=== PATIENT | male | born 1975 | race Two or more races ===

== ENCOUNTER 2024-09-21 10:44 | Outpatient (REF) | payer SELFPAY ==
--- OUTSIDE RECORDS SUMMARY | 2024-09-21 10:50 | XMS_ITS | Clinical Summary ---
Author Organization [facility] ity Address [address] [place] [address] Care Team Providers Care Student Ministry Pastor Name Role Phone Unavailable Primary Care Provider Unavailabl e Social History Tobacco Use Types Packs/Day Years Used Date Smoking Tobacco: Never Assessed Sex and Gender Information Value Date Recorded Sex Assigned at Not on file Legal Sex Male 12:49 AM EST Gender Identity Not on file Sexual Orientation Not on file Plan of Treatment Health Maintenance Due Date Last Done Comments DTaP,Tdap,and Td Vaccines (1 - Tdap) 1996 Hepatitis B Vaccines (1 of 3 - 19+ 3-dose series) 1996 COVID-19 Vaccine (2023-2 5 season) 2024 Influenza Vaccine (#1) 2024 HIB Vaccines Aged Out No longer eligi ble based on patient's age to complete this topic HPV Vaccines Aged Out No longer eligi ble based on patient's age to complete this topic Hepatitis A Vaccines Aged Out No long er eligible based on patient's age to complete this topic IPV Vaccines Aged Out No longer eligi ble based on patient's age to complete this topic MMR Vaccines Aged Out No longer eligi ble based on patient's age to complete this topic Meningococcal ACWY Vaccine Aged Out N o longer eligible based on patient's age to complete this topic Meningococcal B Vacine Aged Out No lo nger eligible based on patient's age to complete this topic Pneumococcal Vaccine: Pediat rics (0 to 5 Years) and At-Risk Patients (6 to 64 Years) Aged Out No longer eligible b ased on patient's age to complete this topic RSV Immunization Patients Un michelle 20 months Aged Out No longer eligible b ased on patient's age to complete this topic Varicella Vaccines Aged Out No longer eligible based on patient's age to complete this topic
--- OUTSIDE RECORDS SUMMARY | 2024-09-21 10:50 | XMS_ITS | Encounter Summary ---
Author Organization [email or web address] Address [address] [place] [address] 7 [place] [address] Care Team Providers Care Installment Dealer Name Role Phone Jairo Contreras MD Primary Care Prov ider Reason for Visit * Reason Comments Med Refill Encounter Details Date Type Department Care Team (Late st Contact Info) Description 09/30/2022 Refill [facility] [address] [place] [address] Jairo Contreras MD [address] [place] [address] Mild intermittent asthma without complication Social History Tobacco Use Types Packs/Day Years Used Date Smoking Tobacco: Never Assessed Sex and Gender Information Value Date Recorded Sex Assigned at Male 05/30/2022 10:37 AM EDT Legal Sex Male 10:37 AM EDT Gender Identity Male 05/30/2022 10:37 AM EDT Sexual Orientation Straight 05/30/2022 10 :37 AM EDT documented as of this encounter Plan of Treatment Not on file documented as of this encounter Visit Diagnoses Diagnosis Mild intermittent asthma without complication documented in this encounter Care Teams Installment Dealer Relationship Specialty Start Date End Date Jairo Contreras MD [address] [place] [address] PCP - General Internal Medicine 06/05/20 documented as of this encounter
--- OUTSIDE RECORDS SUMMARY | 2024-09-21 10:50 | XMS_ITS | Clinical Summary ---
Author Organization [employer] Address [address] [facility] 7t [place] [address] Care Team Providers Care Ocean Transportation Intermediary Name Role Phone Jairo Contreras MD Primary Care Prov ider Allergies No known active allergies Medications nicotine (Nicoderm CQ) 21 MG/24HR patchIndications:Brody schaffer Place 1 patch on the skin 1 (one) time each day at the same time. 42 patch 08/29/19 23 Active metFORMIN (Glucophage) 500 MG tablet TAKE 1 TABLET(500 MG) BY MOUTH TWICE DAILY 180 tablet 1 07/11/20 24 Active rosuvastatin (Crestor) 10 MG tabletIndications: Mixed hyperlipidemia TAKE 1 TABLET(10 MG) BY MOUTH IN THE MORNING 90 tablet 1 07/15/20 24 Active empagliflozin (Jardiance) 25 MG Take 1 tablet (25 mg) by mouth Once per day. 30 tablet 11 08/12/19 25 026 Active albuterol 108 (90 Base) MCG/ACT inhalerIndications :Mild intermittent asthma without complication INHALE 1 PUFF BY MOUTH EVERY 6 HOURS NEEDED FOR WHEEZING 8.5 g 1 08/30/19 25 Active albuterol 108 (90 Base) MCG/ACT inhalerIndications :Mild intermittent asthma without complication Inhale 1 puff every 6 (six) hours if needed for wheezing. 8.5 g 1 07/16/20 24 025 Discontinued Active Problems Problem Noted Date Diagnosed Date Type 2 diabetes mellitus wit h hyperglycemia, without long-term current use of insulin 08/29/2022 Assessment & Plan (08/12/2024 7:57 PM EST): Not at target, will add jardiance, continue metformin, follow up in 1 month Assessment & Plan (10/12/2023 12:43 PM EDT): Patient not adhering to diet, he is on metformin 500mg bid, does not want to get dose increased, will follow up in 3 months Will refer for eye exam Assessment & Plan (04/26/2023 1:23 PM EDT): Refers average from 120's to 150's, not interested in increasing his metformin dose, will place blood work for guidance of therapy Eye exam done on target december as per patient Assessment & Plan (08/29/2022 9:51 AM EST): [place] in the 100's highest 160's, last a1c from 04/2022 was 6.9%, reinforced importance of weight loss, exercise and low carbohydrate diet. Follow up in 3 month in office Will refer for eye exam Mixed hyperlipidemia 08/29/2022 Assessment & Plan (08/12/2024 7:58 PM EST): Continue rosuvastatin, labs ordered not performed Assessment & Plan (10/12/2023 12:44 PM EDT): On rosuvastatin 10mg, not adhering to diet, does not want to get dose increased, wants to follow up in 3 months Assessment & Plan (04/26/2023 1:24 PM EDT): On rosuvastatin, will order new labs for guidance of therapy Assessment & Plan (08/29/2022 9:49 AM EST): On rosuvastatin, will order new labs for guidance of therapy Screening for colon cancer 08/29/2022 Assessment & Plan (08/29/2022 9:50 AM EST): Will refer for a screening colonoscopy Smoker 08/29/2022 Assessment & Plan (08/29/2022 9:51 AM EST): Patient is interested in quitting smoking ciggarrettes, will prescribe nicotine patches. Encounters Date Type Department Care Team Description 08/27/2024 Refill [facility] [address] [place] [address] Jairo Contreras MD Mild intermittent asthma without complication 08/12/2024 10:15 AM EST Office Visit [facility] [address] [place] [address] Jairo Contreras MD Mixed hyperlipidemia (Primary Dx); Type 2 diabetes mellitus with hyperglycemia, without long-term current use of insulin ([facility]) 08/12/2024 Travel 08/08/2024 Travel 07/15/2024 Refill [facility] [address] [place] [address] Jairo Contreras MD Mild intermittent asthma without complication 07/15/2024 Telephone [facility] [address] [place] [address] Jairo Contreras MD Med Refill 07/13/2024 Refill [facility] [address] [place] [address] Jairo Contreras MD Mixed hyperlipidemia 07/11/2024 Refill [facility] [address] [place] [address] Jairo Contreras MD 07/04/2024 Refill [facility] [address] [place] [address] Jairo Contreras MD Mild intermittent asthma without complication from Last 3 Months Social History Tobacco Use Types Packs/Day Years Used Date Smoking Tobacco: Every Day Cigarettes 1 20 Smokeless Tobacco: Never Alcohol Use Standard Drinks/Week Comments Yes 0 (1 standard drink = 0.6 oz pur e alcohol) Depression Answer Date Recorded Patient Health Questionnaire-9 Score 0 10/12/2023 Patient Health Questionnaire-9 Score 0 10/12/2023 Last PHQ-9: Questionnaire Data Not on file 0 10/12/2023 Housing Stability Answer Date Recorded What is your housing situation today? I have watson gee 10/12/[address] you li ve. Do you have problems with any of the following? None of the above 10/12/2023 Food Insecurity Answer Date Recorded Within the past 12 months, y ou worried that your food would run out before you got money to buy more: Never True 10/12/2023 Within the past 12 months,th e food you bought just didn't last and you didn't have enough money to get more: Never True Transportation Answer Date Recorded In the past 12 months, has l ack of transportation kept you from medical appts, meetings, work or from getting things needed for daily living? No 10/12/2023 Utilities Answer Date Recorded In the past 12 months, has t he electric, gas, oil or water company threatened to shut off services in your home? No 10/12/2023 Depression Answer Date Recorded Patient Health Questionnaire-2 Score 0 10/12/2023 Sex and Gender Information Value Date Recorded Sex Assigned at Male 05/30/2022 10:37 AM EDT Legal Sex Male 10:37 AM EDT Gender Identity Male 05/30/2022 10:37 AM EDT Sexual Orientation Straight 05/30/2022 10 :37 AM EDT Last Filed Vital Signs Vital Sign Reading Time Taken Comments Blood Pressure 136/84 08/12/2024 10:33 AM EST Pulse 100 08/12/2024 10:33 AM EST Temperature 36.3 ??C (97.3 ??F) 08/12/2024 10:[address] Respiratory Rate 20 08/12/2024 10:33 AM EST Oxygen Saturation 98% 08/12/2024 10:33 AM EST Inhaled Oxygen Concentration - - Weight 77.2 kg (170 lb 3.2 oz) 08/12/2024 10:33 AM EST Height 160 cm (5' 3 ) 08/12/2024 10:33 AM EST Body Mass Index 30.15 08/12/2024 10:33 AM EST Plan of Treatment Health Maintenance Due Date Last Done Comments CT Colonography 1977 Colonoscopy 1977 Colorectal Cancer Screening 1977 FIT DNA/Cologuard 1977 FIT 1977 FOBT 1977 Sigmoidoscopy 1977 Diabetes: Foot Exam 12/22/1987 Eye Exam 12/22/1987 Alcohol/Substance Use Screening 1989 Family Planning (PISQ) 1992 DTaP/Tdap/Td Vaccines (1 - Tdap) 1996 Hepatitis B Vaccines (1 of 3 - 19+ 3-dose series) 1996 Pneumococcal Vaccine: Pediatrics (0 to 5 Years) and At-Risk Patients (6 to 49) Years) (1 of 2 - PCV) 1996 COVID-19 Vaccine (3 - season) 2024 11/09/2020, 10/19/2020 Influenza Vaccine (#1) 2024 Tobacco Screening 04/26/2024 04/26/2023 Diabetes: Urine Protein Screening 10/02/2024 10/03/2023, 06/10/2021 Lipid Panel 10/02/2024 10/03/2023, 07/0 01/2023, 05/18/2022, Additional history exists Depression Screening 10/11/2024 10/12/2023, 10/12/19 SDOH Screening 10/11/2024 10/12/2023 Diabetes: Hemoglobin A1C 11/10/2024 025, 10/03/2023, 05/18/2022, Additional history exists Zoster Vaccines (1 of 2) 12/22/2027 RSV Patients and Patients Aged 60 years or older (1 - 1-dose 75+ series) 2052 HIV Screening Completed 02/03/2023, 06/09/2020 Hepatitis C Screening Completed 02/03/2023, 022 HIB Vaccines Aged Out No longer eligi [...] patient's age to complete this topic Meningococcal Vaccine Aged Out No sandra arabella eligible based on patient's age to complete this topic RSV under 20 months Aged Out No longe r eligible based on patient's age to complete this topic Rotavirus Vaccines Aged Out No longer eligible based on patient's age to complete this topic Procedures Procedure Name Priority Date/Time Associated Diagnosis Comments POCT GLYCATED HEMOGLOBIN, TOTAL Routine 08/12/2024 10:36 AM EST Type 2 diabetes mellitus with hyperglycemia, without long-term current use of insulin (CMS/HCC) POCT GLUCOSE Routine 08/12/2024 10:35 AM EST Type 2 diabetes mellitus with hyperglycemia, without long-term current use of insulin (CMS/HCC) ALBUMIN, RANDOM URINE W/CREATININE Routine 10/03/2023 9:03 AM EST LIPID PANEL, STANDARD Routine 10/03/2023 9:03 AM EST HEPATITIS C AB W/REFL TO HCV RNA, QN, PCR Routine 02/03/2023 9:23 AM EDT Type 2 diabetes mellitus without complication, without long-term current use of insulin ([facility]) Mixed hyperlipidemia HIV 1 RNA, QN PCR W/RFL ZACK (RTI,PI,INTEGRASE) Routine 02/03/2023 9:23 AM EDT Type 2 diabetes mellitus without complication, without long-term current use of insulin ([facility]) Mixed hyperlipidemia from Last 3 Months or Most Recently Relevant to Health Maintenance Results * (ABNORMAL) POCT HGB A1C (08/12/2024 10:36 AM EST) Pathologist [facility] Hemoglobin A1C 7.8(A) 4.0 - 6.0 % QC Media Lot # [id number] Lot# Expiration Date 8,026 Blood 08/12/2024 10:3 6 AM EST Jairo Richards MD POINT OF CARE TEST ENTER/EDIT ORDERABLES Final Result * (ABNORMAL) POCT Glucose (08/12/2024 10:35 AM EST) Pathologist [facility] Glucose Blood, POC 313(A) 60 - 200 mg/dL QC Media Lot # [id number] Lot# Expiration Date [id number] Blood Capillary blood specimen / Unknown 08/12/2024 10:35 AM EST Jairo Richards MD POINT OF CARE TEST ENTER/EDIT ORDERABLES Final Result * Albumin, Random Urine W/Creatinine (10/03/2023 9:03 AM EST) Creatinine, Random Urine 216 20 - 320 mg/dL [email or web address] Albumin, Urine 2.4 See Note: mg/dL [facility] [place] [email or web address] Comment: Reference Range: Reference Range Not established Albumin/Creatinin e Ratio, Random Urine 11 <30 mcg/mg creat [facility] [place] [email or web address] Comment: The ADA defines abnormalities in albumin excretion as follows: Albuminuria Category ?Result (mcg/mg creatinine) Normal to Mildly increased ?? <30 Moderately increased ? 30-299 Severely increased ? > OR = 300 The ADA recommends that at least two of three specimens collected within a 3-6 month period be abnormal before considering a patient to be within a diagnostic category. 10/03/2023 9:03 AM EST 10/03/2023 9:04 AM EST Narrative [facility] - 10/04/2023 5:52 PM EST FASTING:YES FASTING: YES Jairo Richards MD LAB URINE ORDERABL ES Final Result [facility] [address], [place] [address] [facility] [place] [email or web address] [address] [place] [address] * (ABNORMAL) Lipid Panel, Standard (10/03/2023 9:03 AM EST) Cholesterol, Total 193 <200 mg/dL [facility] [place] [email or web address] HDL Cholesterol 42 > OR = 40 mg/dL [facility] [place] [email or web address] Triglycerides 150(H) <150 mg/dL [facility] [place] [email or web address] LDL Cholesterol 125(H) mg/dL [facility] [place] [email or web address] Comment: Reference range: <100 Desirable range <100 mg/dL for primary prevention; ?? <70 mg/dL for patients with CHD or diabetic patients with > or = 2 CHD risk factors. LDL-C is now calculated using the Ana calculation, which is a validated novel method providing better accuracy than the Friedewald equation in the estimation of LDL-C. Jd STEEN et al. CECI. 2013;310(19): 8629-0570 (http://education.Orchestrate/faq/MXF257) Chol/HDLC Ratio 4.6 <5.0 (calc) [facility] [place] [email or web address] Non-HDL Cholesterol 151(H) <130 mg/dL [facility] [place] [email or web address] Comment: For patients with diabetes plus 1 major ASCVD risk factor, treating to a non-HDL-C goal of <100 mg/dL (LDL-C of <70 mg/dL) is considered a therapeutic option. 10/03/2023 9:03 AM EST 10/03/2023 9:04 AM EST Narrative [facility] - 10/04/2023 5:52 PM EST FASTING:YES FASTING: YES Jairo Richards MD LAB BLOOD ORDERABL ES Final Result [facility] [address], [place] [address] [facility] [place] [email or web address] [address] [place] [address] * HIV-1 RNA, Quantitative, Real-Time PCR with Reflex to Genotype (RTI, PI, Integrase) (02/03/2023 9:23 AM EDT) Pathologist [facility] HIV 1 RNA, QN PCR NOT DETECTED copies/mL [facility], HIV 1 RNA, QN PCR NOT DETECTED Log copies/mL [facility], Comment: REFERENCE RANGE: NOT DETECTED copies/mL ?NOT DETECTED ??Log copies/mL This test was performed using Real-Time Polymerase Chain Reaction. Reportable range is 20 to 10,000,000 copies/mL (1.30-7.00 Log copies/mL). 02/03/2023 9:23 AM EDT 02/03/2023 9:24 AM EDT Narrative [facility] - 02/08/2023 6:53 PM EDT FASTING:YES FASTING: YES Jairo Richards MD LAB BLOOD ORDERABL ES Final Result Performing Organization Address [facility]/ZIP Co de Phone Number [facility] [address], [place] [address] [facility], [address] [place] [address] * Hepatitis C Antibody with Reflex to HCV, RNA, Quantitative, Real-Time PCR (02/03/2023 9:23 AM EDT) Pathologist [facility] Hepatitis C Antibody NON-REACT LEON NON-REACT LEON [facility] [place] [email or web address] Comment: HCV antibody was non-reactive. There is no laboratory evidence of HCV infection. In most cases, no further action is required. However, if recent HCV exposure is suspected, a test for HCV RNA (test code 41630) is suggested. For additional information please refer to http://education.[employer]/faq/JSM19c8 (This link is being provided for informational/ educational purposes only.) Blood Venous blood specimen / Unknown 02/03/2023 9:23 AM EDT 02/03/2023 9:24 AM EDT Narrative [facility] - 02/08/2023 6:53 PM EDT FASTING:YES FASTING: YES Jairo Richards MD LAB BLOOD ORDERABL ES Final Result Performing Organization Address [facility]/ZIP Co de Phone Number [employer] [address] [place] [address], [place] [address] [facility] [address] [place] [phone] from Last 3 Months or Most Recently Relevant to Health Maintenance Insurance BCBS PPO Care Teams Ocean Transportation Intermediary Relationship Specialty Start Date End Date Jairo Contreras MD [address] [place] [id number] PCP - General Internal Medicine 06/05/20
--- OUTSIDE RECORDS SUMMARY | 2024-09-21 10:50 | XMS_ITS | Encounter Summary ---
Author Organization [employer] Address [address] [facility] 7t [place] [address] Care Team Providers Care Laboratory Cureman Name Role Phone Jairo Contreras MD Primary Care Prov ider Reason for Visit * Reason Comments Med Refill Encounter Details Date Type Department Care Team (Late st Contact Info) Description 08/27/2024 Refill [facility] [address] [place] [address] Jairo Contreras MD [address] [place] [address] Mild intermittent asthma without complication Social History [...] asthma without complication documented in this encounter Additional Health Concerns Assessment Noted Time PHQ-9 Depression Total Score: 0 10/12/19 24 11:29 AM EDT documented as of this encounter Care Teams Laboratory Cureman Relationship Specialty Start Date End Date Jairo Contreras MD [address] [place] [id number] PCP - General Internal Medicine 06/05/20 documented as of this encounter
--- OUTSIDE RECORDS SUMMARY | 2024-09-21 10:50 | XMS_ITS | Encounter Summary ---
Author Organization [employer] Address [address] [facility] 7 [place] [address] Care Team Providers Care Wind Tunnel Mechanic Name Role Phone Jairo Contreras MD Primary Care Prov ider Reason for Visit * Reason Onset Date Comments Med Refill 07/15/2024 Encounter Details Date Type Department Care Team ([facility] st Contact Info) Description 07/15/2024 Telephone [facility] [address] [place] [address] Jairo Contreras MD [address] [place] [address] Med Refill Social History Tobacco Use Types Packs/Day Years [...] AM EDT documented as of this encounter Miscellaneous Notes * Telephone Encounter - Zara Dickerson LPN - 07/15/2024 3:29 PM EST Medication sent to [facility] #[id number] on 06/04/24 with 1 refill. * Telephone Encounter - Raghav Smith - 07/15/2024 2:15 PM EST TC from pt requesting medication refill. Medications needing refill : albuterol 108 (90 Base) MCG/ACT inhaler To be sent to: [id number] AT [facility] documented in this encounter Plan of Treatment Not on file documented as of this encounter Visit Diagnoses Not on filedocumented in this encounter Additional Health Concerns Assessment Noted Time PHQ-9 Depression Total Score: 0 10/12/19 24 11:29 AM EDT documented as of this encounter Care Teams Wind Tunnel Mechanic Relationship Specialty Start Date End Date Jairo Contreras MD [address] [place] [id number] PCP - General Internal Medicine 06/05/20 documented as of this encounter
--- OUTSIDE RECORDS SUMMARY | 2024-09-21 10:50 | XMS_ITS | Encounter Summary ---
Author Organization [employer] Address [address] [facility] 7t [place] [address] Care Team Providers Care Gate Operator Name Role Phone Jairo Contreras MD Primary Care Prov ider Reason for Visit * Reason Onset Date Comments Nurse Triage 06/11/2024 Encounter Details Date Type Department Care Team ([facility] st Contact Info) Description 06/11/2024 Telephone [facility] [address] [place] [address] Jairo Contreras MD [address] [place] [address] Nurse Triage Social History Tobacco Use Types Packs/Day Years [...] encounter Miscellaneous Notes * Telephone Encounter - Lior Spain - 06/11/2024 2:17 PM EST Symptoms: Cough, Skin Lump Outcome: Schedule an appointment to be seen within 24 hours Reason: Caller denied all higher acuity questions documented in this encounter Plan of Treatment Not on file documented as of this encounter Visit Diagnoses Not on filedocumented in this encounter Additional Health Concerns Assessment Noted Time PHQ-9 Depression Total Score: 0 10/12/19 24 11:29 AM EDT documented as of this encounter Care Teams Gate Operator Relationship Specialty Start Date End Date Jairo Contreras MD [address] [place] [id number] PCP - General Internal Medicine 06/05/20 documented as of this encounter
--- OUTSIDE RECORDS SUMMARY | 2024-09-21 10:50 | XMS_ITS | Encounter Summary ---
Author Organization [employer] Address [address] [place] [address] [address] [place] [address] Care Team Providers Care Hot Plate Plywood Press Feeder Name Role Phone Jairo Contreras MD Primary Care Prov ider Encounter Details Date Type Department Care Team (Late st Contact Info) Description 08/30/2023 Telephone [facility] [address] [place], [place] [phone] Lin Richardson LPN Social History Tobacco Use Types Packs/Day Years Used Date Smoking Tobacco: Every Day Cigarettes 1 20 Smokeless Tobacco: Never Alcohol Use Standard Drinks/Week Comments Yes 0 (1 standard drink = 0.6 oz pur e alcohol) Sex and Gender Information Value Date Recorded Sex Assigned at Male 05/30/2022 10:37 AM EDT Legal Sex Male 10:37 AM EDT Gender Identity Male 05/30/2022 10:37 AM EDT Sexual Orientation Straight 05/30/2022 10 :37 AM EDT documented as of this encounter Plan of Treatment Not on file documented as of this encounter Visit Diagnoses Not on filedocumented in this encounter Care Teams Hot Plate Plywood Press Feeder Relationship Specialty Start Date End Date Jairo Contreras MD [address] [place] [address] PCP - General Internal Medicine 06/05/20 documented as of this encounter
--- OUTSIDE RECORDS SUMMARY | 2024-09-21 10:50 | XMS_ITS | Encounter Summary ---
Author Organization [employer] Address [address] [facility] 7t [place] [address] Care Team Providers Care Geophysical Support Specialist Name Role Phone Jairo Contreras MD Primary Care Prov ider Reason for Visit * Reason Comments Med Refill Encounter Details Date Type Department Care Team ([facility] st Contact Info) Description 05/31/2024 Refill [facility] [address] [place], [place] [phone] Jairo Contreras MD [address] [place] [address] Mild intermittent asthma without complication Social History [...] documented as of this encounter Care Teams Geophysical Support Specialist Relationship Specialty Start Date End Date Jairo Contreras MD [address] [place] [id number] PCP - General Internal Medicine 06/05/20 documented as of this encounter
--- OUTSIDE RECORDS SUMMARY | 2024-09-21 10:50 | XMS_ITS | Encounter Summary ---
Author Organization [employer] Address [address] [facility] [address] [place] [address] Care Team Providers Care Government Service Executive Name Role Phone Jairo Contreras MD Primary Care Prov ider Reason for Visit * Reason Onset Date Comments Appointment Request 01/09/2023 Encounter Details Date Type Department Care Team ([facility] st Contact Info) Description 01/09/2023 Telephone [facility] MED & PEDS [address] [place] [address] Jairo Contreras MD [address] [place] [address] Appointment Request Social History Tobacco Use Types Packs/Day Years Used Date Smoking Tobacco: Never Assessed Sex and Gender Information Value Date Recorded Sex Assigned at Male 05/30/2022 10:37 AM EDT Legal Sex Male 10:37 AM EDT Gender Identity Male 05/30/2022 10:37 AM EDT Sexual Orientation Straight 05/30/2022 10 :37 AM EDT documented as of this encounter Miscellaneous Notes * Telephone Encounter - Mitzy Wolfe RN - 01/10/2023 9:47 AM EDT Call to pt to r/s f/u DM from 12/02/22. No answer. Left v/m requesting return call. Will forward to [place] to re attempt. * Telephone Encounter - Rossy Wolfe - 01/09/2023 3:31 PM EDT Tc from ting requesting an appointment for a f/u on diabetes and results to lab work. States pt is going to get it done this weekend. documented in this encounter Plan of Treatment Not on file documented as of this encounter Visit Diagnoses Not on filedocumented in this encounter Care Teams Government Service Executive Relationship Specialty Start Date End Date Jairo Contreras MD [address] [place] [id number] PCP - General Internal Medicine 06/05/20 documented as of this encounter
--- OUTSIDE RECORDS SUMMARY | 2024-09-21 10:50 | XMS_ITS | Encounter Summary ---
Author Organization [employer] Address [address] [facility] [address] [place] [address] Care Team Providers Care Spa Receptionist Name Role Phone Jairo Contreras MD Primary Care Prov ider Reason for Visit * Reason Comments Med Refill Encounter Details Date Type Department Care Team ([facility] st Contact Info) Description 07/04/2024 Refill [facility] CH[facility] MED & PEDS [address] [place], [place] [id number] Jairo Contreras MD [address] [place] [address] Mild intermittent asthma without complication Social History [...] documented as of this encounter Care Teams Spa Receptionist Relationship Specialty Start Date End Date Jairo Contreras MD [address] [place] [id number] PCP - General Internal Medicine 06/05/20 documented as of this encounter
[2024-09-21 11:20] LABS: Estimated Average Glucose 200 mg/dL; Hemoglobin A1C 300.7661 umol/L; Hemoglobin A1c % 8.6 % (<6.0); Total Hemoglobin (HGBA1C) 4292.8165 umol/L
[2024-09-21 11:45] LABS: Alanine Aminotransferase 112 U/L (0-40); Albumin Level 4.7 g/dL (3.5-5.0); Alkaline Phosphatase 63 U/L (39-117); Anion Gap 12 (12-20); Aspartate Amino Transferase 51 U/L (5-37); Bilirubin Total 1.7 mg/dL (0.0-1.0); Blood Urea Nitrogen 17 mg/dL (9-16); Calcium 9.7 mg/dL (8.4-10.2); Carbon Dioxide 26 mmol/L (22-29); Chloride 104 mmol/L (96-108); Cholesterol 208 mg/dL (<200); Estimated Glomerular Filt Rate > 60; Glucose Random 177 mg/dL (60-115); HDL Cholesterol 40 mg/dL (>40); LDL Cholesterol Calculated 143 mg/dL (<100); Potassium 4.4 mmol/L (3.3-5.1); Sodium 138 mmol/L (135-145); Total Protein 8.6 g/dL (6.5-8.0); Triglycerides 125 mg/dL (<150)
== END 2024-09-21 10:45 | disposition home or self-care (01) ==
LOC: HO.LAB 10:44
PROVIDERS: PCP Internal Medicine; Visit Provider Internal Medicine
DX: E11.65 Type 2 diabetes mellitus with hyperglycemia (principal)
CPT/HCPCS: 36415; 80053; 80061; 83036